=== PATIENT | female | born 1995 | race Caucasian/White ===

== ENCOUNTER 2017-02-21 18:00 | Emergency (ER) | payer SELFPAY ==
[~2017-02-21] VITALS: Ht 167.6 cm; Wt 78.7 kg
[2017-02-21 18:03] VITALS: BP 132/87
[2017-02-21] MEDS ORDERED: SODIUM CHLORIDE 0.9% 1,000 ML IV ONE (18:23)
[2017-02-21] MEDS ORDERED: METOCLOPRAMIDE 5 MG/ML, 2ML IVPush ONE (18:30)
[2017-02-21] MEDS ORDERED: SODIUM CHLORIDE 0.9% 1,000ML IVBOLUS ONE (18:30)
[2017-02-21] MEDS ORDERED: METOCLOPRAMIDE 5 MG/ML, 2ML ONE (18:31)
[2017-02-21 18:50] LABS: ASPARTATE AMINO TRANSFERASE 24 U/L (15-37); BLOOD UREA NITROGEN 5 mg/dL (7-18)
== END 2017-02-21 20:48 | disposition home or self-care (01) ==
LOC: ED 20:04
DX: R55 Syncope and collapse (principal); R11.2 Nausea with vomiting, unspecified; E86.0 Dehydration; N39.0 Urinary tract infection, site not specified
CPT/HCPCS: 36415; 76700; 80053; 81001; 83690; 85025; 87077; 87086; 93005; 96361; 96374; 99285; J2765; J7030

== ENCOUNTER 2017-04-08 18:26 | Emergency (ER) | payer BC ==
[~2017-04-08] VITALS: Ht 167.6 cm; Wt 80.5 kg
[2017-04-08 20:15] VITALS: BP 121/72
== END 2017-04-08 20:22 | disposition home or self-care (01) ==
LOC: ED 20:00
DX: O26.892 Other specified pregnancy related conditions, second trimester (principal); R10.9 Unspecified abdominal pain; E03.9 Hypothyroidism, unspecified; Z3A.19 19 weeks gestation of pregnancy
CPT/HCPCS: 76815; 99284

== ENCOUNTER 2017-04-21 17:30 | Outpatient (CLI) | payer BC ==
[2017-04-21 17:55] VITALS: BP 119/73
== END 2017-04-21 19:45 | disposition home or self-care (01) ==
LOC: LDOP 17:30
PROVIDERS: ATTEND Obstetrics & Gynecology
DX: O26.892 Other specified pregnancy related conditions, second trimester (principal); O46.92 Antepartum hemorrhage, unspecified, second trimester; O99.342 Other mental disorders complicating pregnancy, second trimester; O99.282 Endocrine, nutritional and metabolic diseases complicating pregnancy, second trimester; F32.9 Major depressive disorder, single episode, unspecified; E07.9 Disorder of thyroid, unspecified; R10.9 Unspecified abdominal pain; Z3A.20 20 weeks gestation of pregnancy
CPT/HCPCS: 59025; 81003; 87086; 99211; G0463

== ENCOUNTER 2017-05-26 19:34 | Outpatient (CLI) | payer BC | END 2017-05-26 21:40 | disposition home or self-care (01) | LOC: LDOP 19:34 | PROVIDERS: ATTEND Obstetrics & Gynecology | DX: Z34.92 Encounter for supervision of normal pregnancy, unspecified, second trimester (principal) | CPT/HCPCS: 59025; 99211; G0463 ==

== ENCOUNTER 2017-08-27 13:30 | Outpatient (CLI) | payer BC ==
[~2017-08-27] VITALS: Ht 168.9 cm; Wt 91.8 kg
[2017-08-27 13:48] VITALS: BP 130/79
== END 2017-08-27 15:26 | disposition home or self-care (01) ==
LOC: LDOP 13:30
PROVIDERS: ATTEND Obstetrics & Gynecology
DX: O26.893 Other specified pregnancy related conditions, third trimester (principal); O99.343 Other mental disorders complicating pregnancy, third trimester; O99.283 Endocrine, nutritional and metabolic diseases complicating pregnancy, third trimester; R42 Dizziness and giddiness; R10.9 Unspecified abdominal pain; R11.0 Nausea; F32.9 Major depressive disorder, single episode, unspecified; E07.9 Disorder of thyroid, unspecified; Z3A.38 38 weeks gestation of pregnancy
CPT/HCPCS: 59025; 81003; 87086; 99211; G0463

== ENCOUNTER 2017-09-03 22:02 | Outpatient (CLI) | payer BC ==
[~2017-09-03] VITALS: Ht 167.6 cm; Wt 93.6 kg
[2017-09-03 22:18] VITALS: BP 132/84
[2017-09-03] MEDS ORDERED: LEVO125T5 PO (23:07)
[2017-09-03] MEDS ORDERED: PREN1TAB60 PO (23:07)
== END 2017-09-03 23:20 | disposition home or self-care (01) ==
LOC: LDOP 22:02
PROVIDERS: ATTEND Obstetrics & Gynecology
DX: O26.893 Other specified pregnancy related conditions, third trimester (principal); O99.343 Other mental disorders complicating pregnancy, third trimester; O99.283 Endocrine, nutritional and metabolic diseases complicating pregnancy, third trimester; R10.9 Unspecified abdominal pain; F32.9 Major depressive disorder, single episode, unspecified; E07.9 Disorder of thyroid, unspecified; Z3A.39 39 weeks gestation of pregnancy
CPT/HCPCS: 59025; 99211; G0463

== ENCOUNTER 2017-09-04 05:22 | Inpatient (IN) | payer BC ==
[~2017-09-04] VITALS: Ht 167.6 cm; Wt 93.6 kg
[~2017-09-04 05:22] MED LIST: LEVO125T5 PO; PREN1TAB60 PO
[2017-09-04] MEDS ORDERED: OXYTOCIN 30U/ 0.9% NaCL 500ML 500 ML IV ONE (05:24)
[2017-09-04] MEDS ORDERED: OXYTOCIN 30U/ 0.9% NaCL 500ML 500 ML IV PRN (05:24)
[2017-09-04] MEDS ORDERED: MISOPROSTOL 25 MCG TABLET VG PRN (05:30)
[2017-09-04] MEDS ORDERED: METOCLOPRAMIDE 5 MG/ML, 2ML IVPush PRN (05:30)
[2017-09-04] MEDS ORDERED: FENTANYL PF 100 MCG/2ML IV PRN (05:30)
[2017-09-04] MEDS ORDERED: PENICILLIN GK 5,000,000 UNITS in DEXTROSE 5% 100 ML IVPB ONE (05:30)
[2017-09-04] MEDS ORDERED: SODIUM CITRATE/CITRIC ACID 30 ML UDC PO PRN (05:30)
[2017-09-04] MEDS ORDERED: TERBUTALINE 1 MG/ML, 1ML IVPush PRN (05:30)
[2017-09-04] MEDS ORDERED: NEWBORN KIT ONE (05:31)
[2017-09-04] MEDS ORDERED: MISOPROSTOL 25 MCG TABLET ONE (05:31)
[2017-09-04] MEDS ORDERED: LIDOCAINE 1%, 20ML ONE (05:31)
[2017-09-04] MEDS ORDERED: MISOPROSTOL 200 MCG TABLET ONE (05:31)
[2017-09-04] MEDS ORDERED: OXYTOCIN 30U/ 0.9% NaCL 500ML 500 ML ONE ×2 (05:32→21:55)
[2017-09-04 05:38] VITALS: BP 120/86
[2017-09-04 05:46] LABS: HEMATOCRIT 39.1 % (34.6-47.8); HEMOGLOBIN 13.2 g/dL (11.7-16.4); WHITE BLOOD COUNT 10.7 x10^3/uL (3.4-10)
[2017-09-04] MEDS: LACTATED RINGERS 1,000 ML IV SCH ×5 (05:50→21:24)
[2017-09-04 07:30] VITALS: BP 117/79
[2017-09-04] MEDS ORDERED: ONDANSETRON 2MG/ML, 2ML ONE ×2 (10:21→16:25)
[2017-09-04] MEDS: PENICILLIN GK 2,500,000 UNITS in DEXTROSE 5% 100 ML IV SCH ×3 (10:24→17:53)
[2017-09-04] MEDS: ONDANSETRON 2MG/ML, 2ML IVPush PRN ×2 (10:30→16:29)
[2017-09-04] MEDS ORDERED: FENTANYL PF 100 MCG/2ML ONE ×3 (10:59→12:59)
[2017-09-04] MEDS: FENTANYL PF 100 MCG/2ML IVPush PRN ×3 (11:01→13:00)
[2017-09-04] MEDS ORDERED: FENTANYL/BUPIV./NS/PF 250 ML EPIDCONT SCH (13:01)
[2017-09-04] MEDS ORDERED: FENTANYL/BUPIV./NS/PF 250 ML EPIDCONT ONE (13:24)
[2017-09-04] MEDS ORDERED: BUPIVACAINE/PF 0.25% ONE (13:24)
[2017-09-04] MEDS: D5%-LACTATED RINGERS 1,000 ML IV SCH ×3 (13:24→21:24)
[2017-09-04] MEDS ORDERED: EPHEDRINE 50 MG/ML, 1ML IVPush PRN (13:30)
[2017-09-04] MEDS ORDERED: NALOXONE 0.4 MG/ML, 1ML IVPush PRN (13:30)
[2017-09-04] MEDS ORDERED: LACTATED RINGERS 1,000 ML IVBOLUS PRN (13:30)
[2017-09-04] MEDS ORDERED: CALCIUM CARBONATE 500 MG TAB.CHEW ONE ×2 (17:21→19:31)
[2017-09-04] MEDS: CALCIUM CARBONATE 500 MG TAB.CHEW PO PRN ×2 (17:24→19:33)
[2017-09-04] MEDS ORDERED: LACTATED RINGERS 1,000 ML INTUTE PRN (17:30)
[2017-09-04] MEDS ORDERED: LACTATED RINGERS 1,000 ML INTUTE SCH (17:30)
[2017-09-04] MEDS ORDERED: IBUPROFEN 600 MG TABLET ONE (21:43)
[2017-09-04] MEDS: IBUPROFEN 600 MG TABLET PO PRN (21:59)
[2017-09-04] MEDS ORDERED: ACETAMINOPHEN 325 MG TABLET PO PRN ×2 (22:00)
[2017-09-04] MEDS ORDERED: OXYcodone/APAP 5/325MG TABLET PO PRN (22:00)
[2017-09-04] MEDS ORDERED: METHYLERGONOVINE 0.2 MG/ML IM PRN (22:00)
[2017-09-04] MEDS ORDERED: METOCLOPRAMIDE 5 MG/ML, 2ML IV PRN (22:00)
[2017-09-04] MEDS ORDERED: MISOPROSTOL 200 MCG TABLET PR PRN (22:00)
[2017-09-04] MEDS: OXYTOCIN 30U/ 0.9% NaCL 500ML 500 ML IV SCH (22:00)
[2017-09-04] MEDS ORDERED: ONDANSETRON 2MG/ML, 2ML IV PRN (22:00)
[2017-09-04] MEDS ORDERED: CARBOPROST TROMETHAMINE 250 MCG/ML, 1ML IM PRN (22:00)
[2017-09-04 23:20] VITALS: BP 115/71
[2017-09-05 00:25] VITALS: BP 113/70
[2017-09-05] MEDS: OXYcodone/APAP 5/325MG TABLET PO PRN ×4 (01:07→20:15)
[2017-09-05 03:36] VITALS: BP 103/66
[2017-09-05] MEDS: IBUPROFEN 600 MG TABLET PO PRN ×3 (04:58→20:15)
[2017-09-05] MEDS: LEVOTHYROXINE 125 MCG TABLET PO SCH (05:54)
[2017-09-05 06:09] LABS: HEMATOCRIT 29.5 % (34.6-47.8); HEMOGLOBIN 9.9 g/dL (11.7-16.4); WHITE BLOOD COUNT 14.2 x10^3/uL (3.4-10)
[2017-09-05] MEDS: OXYTOCIN 30U/ 0.9% NaCL 500ML 500 ML IV SCH (07:51)
[2017-09-05 08:00] VITALS: BP 115/76
[2017-09-05] MEDS: PRENATAL VIT/IRON/FA 1 EACH TABLET PO SCH (10:28)
[2017-09-05] MEDS: DOCUSATE 100 MG CAPSULE PO PRN ×2 (10:28→20:15)
[2017-09-05 20:15] VITALS: BP 104/64
[2017-09-06] MEDS: LEVOTHYROXINE 125 MCG TABLET PO SCH (04:00)
[2017-09-06] MEDS: IBUPROFEN 600 MG TABLET PO PRN ×2 (05:57→12:01)
[2017-09-06 09:00] VITALS: BP 111/70
[2017-09-06] MEDS: PRENATAL VIT/IRON/FA 1 EACH TABLET PO SCH (12:01)
[2017-09-06] MEDS: DOCUSATE 100 MG CAPSULE PO PRN (12:01)
[2017-09-06] MEDS ORDERED: OXYC-302 PO (13:04)
[2017-09-06] MEDS ORDERED: IBUP-1222 PO (13:04)
[2017-09-06] MEDS ORDERED: DOCU-131 PO (13:05)
[2017-09-06] MEDS ORDERED: CALCIUM CARBONATE 500 MG TAB.CHEW ONE (13:35)
== END 2017-09-06 17:05 | disposition home or self-care (01) | DRG 775 ==
LOC: LDIP 05:22 → 2NW 23:10
PROVIDERS: ADMIT Obstetrics & Gynecology; ATTEND Obstetrics & Gynecology
PROC: 10E0XZZ Delivery of Products of Conception, External Approach (ICD-10-PCS; principal; 2017-09-04)
PROC: 0HQ9XZZ Repair Perineum Skin, External Approach (ICD-10-PCS; 2017-09-04)
PROC: 3E0R3BZ Introduction of Anesthetic Agent into Spinal Canal, Percutaneous Approach (ICD-10-PCS; 2017-09-04)
PROC: 00HU33Z Insertion of Infusion Device into Spinal Canal, Percutaneous Approach (ICD-10-PCS; 2017-09-04)
PROC: 10907ZC Drainage of Amniotic Fluid, Therapeutic from Products of Conception, Via Natural or Artificial Opening (ICD-10-PCS; 2017-09-04)
DX: O99.824 Streptococcus B carrier state complicating childbirth (principal); O99.344 Other mental disorders complicating childbirth; E03.9 Hypothyroidism, unspecified; O69.81X0 Labor and delivery complicated by cord around neck, without compression, not applicable or unspecified; O77.0 Labor and delivery complicated by meconium in amniotic fluid; O70.0 First degree perineal laceration during delivery; O99.284 Endocrine, nutritional and metabolic diseases complicating childbirth; F32.9 Major depressive disorder, single episode, unspecified; G43.909 Migraine, unspecified, not intractable, without status migrainosus; Z3A.39 39 weeks gestation of pregnancy; Z37.0 Single live birth
CPT/HCPCS: 36415; 85025; 86850; 86900; J2405; J2540; J3010; J2590; J7120; J7121

== ENCOUNTER 2017-09-12 21:52 | Emergency (ER) | payer BC ==
[~2017-09-12] VITALS: Ht 167.6 cm; Wt 89.1 kg
[~2017-09-12 21:52] MED LIST changes: +DOCU-131 PO; +IBUP-1222 PO; +OXYC-302 PO
[2017-09-13] MEDS ORDERED: SODIUM CHLORIDE 0.9% 1,000ML IVBOLUS ONE (00:30)
[2017-09-13] MEDS ORDERED: SODIUM CHLORIDE FLUSH 10ML SYR IVF ONE (00:30)
[2017-09-13] MEDS ORDERED: MORPHINE SULFATE 4 MG/ML, 1ML IVPush PRN (00:30)
[2017-09-13] MEDS ORDERED: ONDANSETRON 2MG/ML, 2ML IVPush ONE (00:30)
[2017-09-13 00:34] LABS: BASOPHILS # (AUTO) 0.04 x10^3/uL (0-0.1); BASOPHILS % (AUTO) 0 % (0-1); EOSINOPHILS # (AUTO) 0.35 x10^3/uL (0-0.4); EOSINOPHILS % (AUTO) 4 % (1-7); LYMPHOCYTES # (AUTO) 2.56 x10^3/uL (1-3.4); LYMPHOCYTES % (AUTO) 27 % (22-44); MD NO; MEAN CORPUSCULAR HEMOGLOBIN 27.7 pg (27.0-34.8); MEAN CORPUSCULAR VOLUME 83.8 fL (80-100); MEAN PLATELET VOLUME 7.7 fL (7.4-10.4); MONOCYTES # (AUTO) 0.68 x10^3/uL (0.2-0.8); MONOCYTES % (AUTO) 7 % (2-9); NEUTROPHILS # (AUTO) 5.81 x10^3/uL (1.8-6.8); NEUTROPHILS % (AUTO) 62 % (42-75); PLATELET COUNT 371 x10^3/uL (130-400); RED BLOOD COUNT 3.97 x10^6/uL (3.82-5.3); RED CELL DISTRIBUTION WIDTH 15.4 % (9.6-15.2)
[2017-09-13 00:46] LABS: ALANINE AMINOTRANSFERASE 32 U/L (12-78); ALBUMIN 2.7 g/dL (3.4-5.0); ANION GAP 8 mmol/L (5-15); CALCIUM 8.7 mg/dL (8.5-10.1); CHLORIDE 112 mmol/L (98-107); CREATININE 0.69 mg/dL (0.55-1.02)
[2017-09-13 00:49] LABS: ALKALINE PHOSPHATASE 47 U/L (45-117); BILIRUBIN,TOTAL 0.2 mg/dL (0.2-1.0); TOTAL PROTEIN 6.5 g/dL (6.4-8.2)
[2017-09-13 00:54] LABS: MICROSCOPIC AUTO
[2017-09-13 00:58] LABS: CULTURE INDICATED? NO
[2017-09-13 01:51] VITALS: BP 129/74
== END 2017-09-13 01:57 | disposition home or self-care (01) ==
LOC: ED 23:59
DX: R10.11 Right upper quadrant pain (principal); R11.0 Nausea; E03.9 Hypothyroidism, unspecified
CPT/HCPCS: 36415; 76700; 80053; 81001; 83690; 85025; 99285